=== PATIENT | male | born 1975 | race Caucasian/White ===

== ENCOUNTER 2019-09-26 19:41 | Emergency (ER) | payer OTHER ==
[~2019-09-26] VITALS: Ht 167.6 cm; Wt 88.5 kg
[2019-09-26 19:48] VITALS: Ht 167.6 cm; Wt 88.5 kg
[2019-09-26 20:59] VITALS: BP 148/111
== END 2019-09-26 20:59 | disposition home or self-care (01) ==
LOC: ED 19:41
DX: S00.83XA Contusion of other part of head, initial encounter (principal); W20.8XXA Other cause of strike by thrown, projected or falling object, initial encounter; Y93.89 Activity, other specified; Y92.89 Other specified places as the place of occurrence of the external cause; Y99.8 Other external cause status